=== PATIENT | female | born 1935 | race Caucasian/White ===

== ENCOUNTER 2021-02-17 22:48 | Emergency (ER) | payer MEDICARE, OTHER ==
[~2021-02-17] VITALS: Ht 144.8 cm; Wt 36.3 kg
[2021-02-18] MEDS ORDERED: ULTRAM 50MG50 MG PO (00:51)
[2021-02-18] MEDS ORDERED: ACETAMINOPHEN 325 MG TAB ONE (01:07)
== END 2021-02-18 01:47 | disposition home or self-care (01) ==
LOC: ER 22:54
DX: M54.6 Pain in thoracic spine (principal); M54.50 Low back pain, unspecified; W01.0XXA Fall on same level from slipping, tripping and stumbling without subsequent striking against object, initial encounter; Y93.01 Activity, walking, marching and hiking; Y92.89 Other specified places as the place of occurrence of the external cause
CPT/HCPCS: 71046; 72070; 72100; 99284

== ENCOUNTER 2021-03-30 19:55 | Emergency (ER) | payer MEDICARE ==
[~2021-03-30] VITALS: Ht 144.8 cm; Wt 36.3 kg
[~2021-03-30 19:55] MED LIST: ULTRAM 50MG50 MG PO
[2021-03-30] MEDS ORDERED: ACETAMINOPHEN 325 MG TAB ONE (20:22)
== END 2021-03-30 23:08 | disposition home or self-care (01) ==
LOC: ER 19:59
DX: S50.02XA Contusion of left elbow, initial encounter (principal); S30.0XXA Contusion of lower back and pelvis, initial encounter; W18.39XA Other fall on same level, initial encounter; Y93.01 Activity, walking, marching and hiking; Y92.090 Kitchen in other non-institutional residence as the place of occurrence of the external cause; I10 Essential (primary) hypertension
CPT/HCPCS: 70450; 72125; 72192; 99283

== ENCOUNTER 2021-04-12 21:42 | Emergency (ER) | payer MEDICARE ==
[~2021-04-12] VITALS: Ht 144.8 cm; Wt 36.3 kg
[2021-04-12 22:08] LABS: BASOPHILS % 0.5 % (0.0-1.0); EOSINOPHILS # (AUTO) 0.1 (0.0-0.4); EOSINOPHILS % 0.9 % (0.0-6.0); HEMATOCRIT 34.3 % (34.2-44.1); LYMPHOCYTES # (AUTO) 1.1 (1.0-3.2); LYMPHOCYTES % 14.3 % (18.0-39.1); MEAN CORPUSCULAR HEMOGLOBIN 30.4 pg (28-32); MEAN CORPUSCULAR HGB CONC 32.1 g/dL (31-35); MEAN CORPUSCULAR VOLUME 94.8 fL (81-99); MONOCYTES # (AUTO) 0.8 (0.2-0.8); MONOCYTES % 9.5 % (4.4-11.3); NEUTROPHILS # (AUTO) 5.9 (2.1-6.9); NEUTROPHILS % 74.3 % (38.7-80.0); PLATELET COUNT 288 x10e3/uL (140-360); RED BLOOD COUNT 3.62 x10e6/uL (3.6-5.1); RED CELL DISTRIBUTION WIDTH 14.7 % (11.7-14.4)
[2021-04-12 22:26] LABS: ALBUMIN 3.2 g/dL (3.5-5.0); ALBUMIN/GLOBULIN RATIO 0.9 (0.8-2.0); ANION GAP 16.8 mmol/L (8-16); CALCIUM 9.1 mg/dL (8.4-10.2); CREATININE, SERUM 1.12 mg/dL (0.57-1.11); POTASSIUM 3.8 mmol/L (3.5-5.1)
[2021-04-12 22:32] LABS: CREATINE KINASE MB 4.5 ng/mL (0-5.0)
[2021-04-12] MEDS ORDERED: ACETAMINOPHEN 325 MG TAB PO STA (23:25)
[2021-04-13] MEDS ORDERED: AZITHROMYCIN250 MG PO (00:49)
[2021-04-13] MEDS ORDERED: VENTOLIN HFA18 GM INH (00:49)
[2021-04-13] MEDS ORDERED: ULTRAM 50MG50 MG PO (00:51)
== END 2021-04-13 01:20 | disposition home or self-care (01) ==
LOC: ER 21:46
DX: S00.83XA Contusion of other part of head, initial encounter (principal); S22.040D Wedge compression fracture of fourth thoracic vertebra, subsequent encounter for fracture with routine healing; M25.522 Pain in left elbow; R91.8 Other nonspecific abnormal finding of lung field; S22.43XA Multiple fractures of ribs, bilateral, initial encounter for closed fracture; I10 Essential (primary) hypertension; J90 Pleural effusion, not elsewhere classified; W18.30XA Fall on same level, unspecified, initial encounter
CPT/HCPCS: 36415; 70450; 71045; 72128; 72131; 72192; 80053; 82550; 82553; 84484; 85025; 93005; 99284

== ENCOUNTER 2021-05-21 02:31 | Inpatient (IN) | payer MEDICARE, OTHER ==
[2021-05-21] VITALS (8 sets, daily range): BP systolic 111–163; BP diastolic 59–109
[~2021-05-21] VITALS: Ht 144.8 cm; Wt 36.3 kg
[~2021-05-21 02:31] MED LIST changes: +AZITHROMYCIN250 MG PO; +VENTOLIN HFA18 GM INH
[2021-05-21 02:53] LABS: BASOPHILS % 0.3 % (0.0-1.0); EOSINOPHILS # (AUTO) 0.1 (0.0-0.4); EOSINOPHILS % 0.4 % (0.0-6.0); HEMATOCRIT 37.9 % (34.2-44.1); HEMOGLOBIN 12.4 g/dL (12.0-16.0); LYMPHOCYTES # (AUTO) 1.8 (1.0-3.2); LYMPHOCYTES % 14.5 % (18.0-39.1); MEAN CORPUSCULAR HEMOGLOBIN 30.6 pg (28-32); MEAN CORPUSCULAR HGB CONC 32.7 g/dL (31-35); MEAN CORPUSCULAR VOLUME 93.6 fL (81-99); MONOCYTES # (AUTO) 1.3 (0.2-0.8); MONOCYTES % 10.1 % (4.4-11.3); NEUTROPHILS # (AUTO) 9.4 (2.1-6.9); NEUTROPHILS % 74.1 % (38.7-80.0); PLATELET COUNT 256 x10e3/uL (140-360); RED BLOOD COUNT 4.05 x10e6/uL (3.6-5.1); RED CELL DISTRIBUTION WIDTH 16.7 % (11.7-14.4)
[2021-05-21 03:09] LABS: ALBUMIN/GLOBULIN RATIO 0.8 (0.8-2.0); ANION GAP 15.7 mmol/L (8-16); CALCIUM 9.6 mg/dL (8.4-10.2); CREATININE, SERUM 1.45 mg/dL (0.57-1.11); POTASSIUM 3.7 mmol/L (3.5-5.1)
[2021-05-21] MEDS ORDERED: DIATRIZOATE MEGL/DIATRIZOA SOD 30 ML BTL PO ONE (03:14)
[2021-05-21 03:17] LABS: CLARITY,URINE CLEAR (CLEAR); COLOR,URINE YELLOW (YELLOW); KETONES,URINE TRACE (NEGATIVE); LEUKOCYTE ESTERASE ,URINE TRACE (NEGATIVE); NITRITE,URINE NEGATIVE (NEGATIVE); URINE UROBILINOGEN 0.2 mg/dL (0.2 - 1)
[2021-05-21 03:18] LABS: PROTEIN,URINE DIPSTICK 1+ (NEGATIVE)
[2021-05-21 03:19] LABS: BACTERIA,URINE FEW /HPF; EPITHELIAL CELLS,URINE RARE /LPF; RBC,URINE 0-5 /HPF (0-5)
[2021-05-21 04:43] LABS: INR 0.95; PROTHROMBIN TIME 13.6 seconds (11.9-14.5)
[2021-05-21 04:44] LABS: PARTIAL THROMBOPLASTIN TIME 37.1 seconds (23.8-35.5)
[2021-05-21] MEDS: SODIUM CHLORIDE 0.9% 1000ML 1,000 ML IV SCH ×3 (05:07→20:56)
[2021-05-21] MEDS ORDERED: MELOXICAM7.5 MG PO (07:00)
[2021-05-21] MEDS ORDERED: CRESTOR10 MG PO (07:33)
[2021-05-21] MEDS ORDERED: DOXYCYCLINE HY100 MG PO (07:34)
[2021-05-21] MEDS ORDERED: COLACE100 MG PO (07:36)
[2021-05-21] MEDS ORDERED: TYLENOL325 MG PO (07:36)
[2021-05-21] MEDS ORDERED: SYNTHROID50 MCG PO (07:36)
[2021-05-21] MEDS ORDERED: HYDROCHLOROTHIA25 MG PO (07:36)
[2021-05-21] MEDS: Morphine 2mg Syringe 2 MG/ML SYR IV PRN ×4 (09:38→23:15)
[2021-05-21] MEDS: ONDANSETRON HCL INJ 2MG/ML 2ML 2 MG/ML VIAL IV PRN (09:38)
[2021-05-21] MEDS ORDERED: ACETAMINOPHEN 1000 MG/100 ML IV PRN (20:45)
[2021-05-21] MEDS: SIMVASTATIN 20 MG TAB PO SCH (20:57)
[2021-05-21] MEDS ORDERED: HYDRALAZINE HCL 20 MG/ML VIAL IV PRN (22:45)
[2021-05-22] VITALS (8 sets, daily range): BP systolic 89–126; BP diastolic 39–68
[2021-05-22] MEDS: SODIUM CHLORIDE 0.9% 1000ML 1,000 ML IV SCH ×3 (03:40→17:26)
[2021-05-22] MEDS: Morphine 2mg Syringe 2 MG/ML SYR IV PRN ×2 (03:40→22:02)
[2021-05-22] MEDS: ONDANSETRON HCL INJ 2MG/ML 2ML 2 MG/ML VIAL IV PRN ×2 (04:59→22:02)
[2021-05-22] MEDS: LEVOTHYROXINE SODIUM 50 MCG TAB PO SCH (05:06)
[2021-05-22 05:31] LABS: BASOPHILS % 0.1 % (0.0-1.0); HEMATOCRIT 36.3 % (34.2-44.1); HEMOGLOBIN 11.9 g/dL (12.0-16.0); LYMPHOCYTES % 7.5 % (18.0-39.1); MEAN CORPUSCULAR HEMOGLOBIN 30.5 pg (28-32); MEAN CORPUSCULAR HGB CONC 32.8 g/dL (31-35); MEAN CORPUSCULAR VOLUME 93.1 fL (81-99); MONOCYTES % 7.5 % (4.4-11.3); NEUTROPHILS # (AUTO) 10.7 (2.1-6.9); NEUTROPHILS % 84.3 % (38.7-80.0); PLATELET COUNT 276 x10e3/uL (140-360); RED CELL DISTRIBUTION WIDTH 17.2 % (11.7-14.4)
[2021-05-22 05:59] LABS: ALBUMIN 2.2 g/dL (3.5-5.0); ALBUMIN/GLOBULIN RATIO 0.7 (0.8-2.0); CREATININE, SERUM 1.15 mg/dL (0.57-1.11)
[2021-05-22 06:22] LABS: CHOL/HDL RATIO 1.6 (3.0-3.6)
[2021-05-22 06:39] LABS: BILIRUBIN,DIRECT 0.4 mg/dL (0.0-0.5)
[2021-05-22 06:45] LABS: THYROID STIMULATING HORMONE 2.76 uIU/mL (0.350-4.940)
[2021-05-22] MEDS: HYDROCHLOROTHIAZIDE 25 MG TAB PO SCH (09:07)
[2021-05-22] MEDS: DOCUSATE SODIUM 100 MG CAP PO SCH (09:07)
[2021-05-22] MEDS ORDERED: POTASSIUM CHLORIDE 20 MEQ TAB CR PO ONE (10:30)
[2021-05-22] MEDS: TRAMADOL HCL 50 MG TAB PO PRN (14:25)
[2021-05-22] MEDS: FAMOTIDINE 20 MG TAB PO SCH (17:26)
[2021-05-22] MEDS: SIMVASTATIN 20 MG TAB PO SCH (21:38)
[2021-05-23] VITALS (8 sets, daily range): BP systolic 118–142; BP diastolic 53–69
[2021-05-23] MEDS: SODIUM CHLORIDE 0.9% 1000ML 1,000 ML IV SCH ×3 (01:26→19:50)
[2021-05-23] MEDS: TRAMADOL HCL 50 MG TAB PO PRN ×3 (04:47→22:02)
[2021-05-23] MEDS: ONDANSETRON HCL INJ 2MG/ML 2ML 2 MG/ML VIAL IV PRN ×4 (04:48→22:01)
[2021-05-23] MEDS: LEVOTHYROXINE SODIUM 50 MCG TAB PO SCH (05:02)
[2021-05-23 05:39] LABS: BASOPHILS % 0.2 % (0.0-1.0); HEMATOCRIT 37.9 % (34.2-44.1); HEMOGLOBIN 11.9 g/dL (12.0-16.0); LYMPHOCYTES # (AUTO) 0.8 (1.0-3.2); LYMPHOCYTES % 7.6 % (18.0-39.1); MEAN CORPUSCULAR HEMOGLOBIN 30.7 pg (28-32); MEAN CORPUSCULAR HGB CONC 31.4 g/dL (31-35); MEAN CORPUSCULAR VOLUME 97.7 fL (81-99); MONOCYTES # (AUTO) 0.8 (0.2-0.8); MONOCYTES % 7.7 % (4.4-11.3); NEUTROPHILS # (AUTO) 8.5 (2.1-6.9); NEUTROPHILS % 83.6 % (38.7-80.0); PLATELET COUNT 309 x10e3/uL (140-360); RED BLOOD COUNT 3.88 x10e6/uL (3.6-5.1); RED CELL DISTRIBUTION WIDTH 18.2 % (11.7-14.4)
[2021-05-23 06:00] LABS: ALBUMIN/GLOBULIN RATIO 0.6 (0.8-2.0); ANION GAP 17.6 mmol/L (8-16); CALCIUM 7.8 mg/dL (8.4-10.2); CREATININE, SERUM 1.46 mg/dL (0.57-1.11); POTASSIUM 3.6 mmol/L (3.5-5.1)
[2021-05-23] MEDS ORDERED: DIGOXIN INJ 0.25 MG/ML 2 ML AMP IV STA (09:34)
[2021-05-23] MEDS: DIGOXIN INJ 0.25 MG/ML 2 ML AMP IV ONE ×2 (09:50→10:00)
[2021-05-23] MEDS: FAMOTIDINE 20 MG TAB PO SCH ×2 (11:45→16:35)
[2021-05-23] MEDS: HYDROCHLOROTHIAZIDE 25 MG TAB PO SCH (16:35)
[2021-05-23] MEDS: DOCUSATE SODIUM 100 MG CAP PO SCH (16:47)
[2021-05-23] MEDS ORDERED: METOPROLOL TARTRATE INJ 1 MG/ML VIAL IV ONE (17:00)
[2021-05-23] MEDS: SIMVASTATIN 20 MG TAB PO SCH (21:41)
[2021-05-24] VITALS (19 sets, daily range): BP systolic 95–115; BP diastolic 30–71
[2021-05-24] MEDS: ONDANSETRON HCL INJ 2MG/ML 2ML 2 MG/ML VIAL IV PRN (01:56)
[2021-05-24] MEDS: Morphine 2mg Syringe 2 MG/ML SYR IV PRN (01:56)
[2021-05-24] MEDS ORDERED: LORAZEPAM 1 MG TAB PO PRN (03:30)
[2021-05-24] MEDS ORDERED: LACTULOSE SYRUP 20 GM/30 ML UDC PO PRN (03:30)
[2021-05-24] MEDS ORDERED: BISACODYL 5 MG TAB EC PO SCH (05:00)
[2021-05-24 05:30] LABS: BASOPHILS % 0.3 % (0.0-1.0); LYMPHOCYTES # (AUTO) 0.3 (1.0-3.2); LYMPHOCYTES % 2.6 % (18.0-39.1); MEAN CORPUSCULAR HEMOGLOBIN 30.7 pg (28-32); MEAN CORPUSCULAR HGB CONC 32.5 g/dL (31-35); MEAN CORPUSCULAR VOLUME 94.6 fL (81-99); MONOCYTES # (AUTO) 0.8 (0.2-0.8); MONOCYTES % 8.5 % (4.4-11.3); NEUTROPHILS # (AUTO) 8.4 (2.1-6.9); NEUTROPHILS % 88.3 % (38.7-80.0); PLATELET COUNT 393 x10e3/uL (140-360); RED BLOOD COUNT 4.23 x10e6/uL (3.6-5.1)
[2021-05-24 05:50] LABS: ALBUMIN 1.9 g/dL (3.5-5.0); ALBUMIN/GLOBULIN RATIO 0.5 (0.8-2.0); CALCIUM 7.6 mg/dL (8.4-10.2); CREATININE, SERUM 2.31 mg/dL (0.57-1.11)
[2021-05-24] MEDS: LEVOTHYROXINE SODIUM 50 MCG TAB PO SCH (06:30)
[2021-05-24] MEDS: FAMOTIDINE 20 MG TAB PO SCH ×2 (07:30→16:30)
[2021-05-24 07:59] LABS: BAND NEUTROPHILS % (MANUAL) 8 %; LYMPHOCYTES % (MANUAL) 4 % (19-48); METAMYELOCYTES % (MANUAL) 1 % (0-0); MONOCYTES % (MANUAL) 9 % (3.4-9.0); NEUTROPHILS % (MANUAL) 78 % (40-74)
[2021-05-24 08:00] LABS: PLATELET ESTIMATE ADEQUATE; PLATELET MORPHOLOGY COMMENT FEW GIANT; RBC MORPHOLOGY COMMENT NORMAL
[2021-05-24] MEDS: HYDROCHLOROTHIAZIDE 25 MG TAB PO SCH (09:00)
[2021-05-24] MEDS: DOCUSATE SODIUM 100 MG CAP PO SCH (09:00)
[2021-05-24] MEDS ORDERED: METOPROLOL TARTRATE INJ 1 MG/ML VIAL IV PRN ×3 (09:15→16:00)
[2021-05-24] MEDS ORDERED: Morphine 2mg Syringe 2 MG/ML SYR IV PRN (10:15)
[2021-05-24] MEDS ORDERED: HYDROCODONE/APAP 10MG-325MG TAB PO PRN (10:15)
[2021-05-24] MEDS ORDERED: SODIUM CHLORIDE 0.9% 250ML 250 ML IV ONE (13:30)
[2021-05-24] MEDS ORDERED: SODIUM CHLORIDE 0.9% 1000ML 1,000 ML IV SCH (16:00)
[2021-05-24] MEDS ORDERED: LACTATED RINGER'S 500 ML INJ ONE (18:15)
[2021-05-24] MEDS: SODIUM BICARBONATE 8.4% 100 ML in SODIUM CHLORIDE 0.45% 1,000 ML IV SCH (18:17)
[2021-05-24] MEDS: METOPROLOL TARTRATE 25 MG TAB PO SCH (19:15)
[2021-05-24] MEDS: SIMVASTATIN 20 MG TAB PO SCH (20:49)
[2021-05-25] VITALS (34 sets, daily range): BP systolic 84–113; BP diastolic 28–66
[2021-05-25] MEDS ORDERED: LEVOTHYROXINE SODIUM 50 MCG TAB PO SCH (05:00)
[2021-05-25] MEDS ORDERED: LEVOTHYROXINE SODIUM 100 MCG/VIAL IV SCH (06:00)
[2021-05-25 06:25] LABS: BASOPHILS # (AUTO) 0.1 (0.0-0.1); BASOPHILS % 0.8 % (0.0-1.0); HEMATOCRIT 36.2 % (34.2-44.1); HEMOGLOBIN 11.5 g/dL (12.0-16.0); LYMPHOCYTES # (AUTO) 0.3 (1.0-3.2); LYMPHOCYTES % 1.7 % (18.0-39.1); MEAN CORPUSCULAR HEMOGLOBIN 30.8 pg (28-32); MEAN CORPUSCULAR HGB CONC 31.8 g/dL (31-35); MEAN CORPUSCULAR VOLUME 97.1 fL (81-99); MONOCYTES # (AUTO) 1.1 (0.2-0.8); NEUTROPHILS # (AUTO) 13.5 (2.1-6.9); NEUTROPHILS % 85.9 % (38.7-80.0); PLATELET COUNT 324 x10e3/uL (140-360); RED BLOOD COUNT 3.73 x10e6/uL (3.6-5.1); RED CELL DISTRIBUTION WIDTH 18.5 % (11.7-14.4)
[2021-05-25 06:47] LABS: ALBUMIN 1.4 g/dL (3.5-5.0); ALBUMIN/GLOBULIN RATIO 0.4 (0.8-2.0); ANION GAP 17.6 mmol/L (8-16); CREATININE, SERUM 2.85 mg/dL (0.57-1.11); POTASSIUM 4.6 mmol/L (3.5-5.1)
[2021-05-25 06:49] LABS: CALCIUM 6.8 mg/dL (8.4-10.2)
[2021-05-25] MEDS: FAMOTIDINE 20 MG TAB PO SCH (07:30)
[2021-05-25] MEDS ORDERED: DEXTROSE 5%/0.9% SOD CHL 1,000 ML IV SCH (07:45)
[2021-05-25] MEDS ORDERED: DEXTROSE 5%/0.9% SOD CHL 1,000 ML IV ONE (07:51)
[2021-05-25] MEDS: SODIUM BICARBONATE 8.4% 100 ML in SODIUM CHLORIDE 0.45% 1,000 ML IV SCH (08:10)
[2021-05-25] MEDS: DOCUSATE SODIUM 100 MG CAP PO SCH (08:32)
[2021-05-25] MEDS: METOPROLOL TARTRATE 25 MG TAB PO SCH (08:33)
[2021-05-25] MEDS ORDERED: BISACODYL 5 MG TAB EC PO SCH (09:00)
[2021-05-25] MEDS ORDERED: AMIODARONE HCL 200 MG TAB PO SCH (09:00)
[2021-05-25] MEDS ORDERED: CALCIUM GLUC 1 G/50 ML NACL 50 ML IV ONE (09:15)
[2021-05-25] MEDS ORDERED: SODIUM BICARBONATE 8.4% SYRING 150 ML in DEXTROSE 5% 1,000 ML IV SCH (11:00)
[2021-05-25 11:58] LABS: BAND NEUTROPHILS % (MANUAL) 10 %; MONOCYTES % (MANUAL) 6 % (3.4-9.0); MYELOCYTES % (MANUAL) 1 % (0-0); NEUTROPHILS % (MANUAL) 83 % (40-74); PLATELET ESTIMATE ADEQUATE; RBC MORPHOLOGY COMMENT NORMAL
[2021-05-25 11:59] LABS: PLATELET MORPHOLOGY COMMENT FEW GIANT
[2021-05-25] MEDS ORDERED: LACTATED RINGER'S 1,000 ML INJ SCH (15:45)
== END 2021-05-25 20:56 | disposition expired | DRG 871 ==
LOC: ER 02:46 → ERHOLD 04:32 → MED/SURG2 05:40 → ICU 05-24 17:10
PROVIDERS: ADMIT Internal Medicine; ATTEND Internal Medicine
PROC: 3E03329 Introduction of Other Anti-infective into Peripheral Vein, Percutaneous Approach (ICD-10-PCS; 2021-05-21)
PROC: 02HV33Z Insertion of Infusion Device into Superior Vena Cava, Percutaneous Approach (ICD-10-PCS; principal; 2021-05-24)
DX: A41.59 Other Gram-negative sepsis (principal); N17.0 Acute kidney failure with tubular necrosis; G92.8 Other toxic encephalopathy; G93.41 Metabolic encephalopathy; K57.20 Diverticulitis of large intestine with perforation and abscess without bleeding; N39.0 Urinary tract infection, site not specified; E87.2 Acidosis; J90 Pleural effusion, not elsewhere classified; K66.8 Other specified disorders of peritoneum; R65.20 Severe sepsis without septic shock; E83.51 Hypocalcemia; E78.5 Hyperlipidemia, unspecified; E03.9 Hypothyroidism, unspecified; E87.6 Hypokalemia; K59.09 Other constipation; I48.0 Paroxysmal atrial fibrillation; B96.4 Proteus (mirabilis) (morganii) as the cause of diseases classified elsewhere; G89.29 Other chronic pain; Z66 Do not resuscitate; T40.2X5A Adverse effect of other opioids, initial encounter; Z88.1 Allergy status to other antibiotic agents; Z88.2 Allergy status to sulfonamides; Z88.8 Allergy status to other drugs, medicaments and biological substances; Z91.81 History of falling; Y92.230 Patient room in hospital as the place of occurrence of the external cause; N18.9 Chronic kidney disease, unspecified; M85.88 Other specified disorders of bone density and structure, other site; I35.2 Nonrheumatic aortic (valve) stenosis with insufficiency; E16.2 Hypoglycemia, unspecified; Z20.822 Contact with and (suspected) exposure to COVID-19; I12.9 Hypertensive chronic kidney disease with stage 1 through stage 4 chronic kidney disease, or unspecified chronic kidney disease
CPT/HCPCS: 36415; 71045; 74022; 74176; 76770; 80053; 80061; 81001; 82150; 82248; 82948; 83036; 83605; 83690; 83735; 83880; 84443; 85025; 85610; 85730; 87040; 87086; 87186; 93005; 93306; 94799; 96361; 97139; 99251; 99284; J1160; J2185; J2270; J2405; J2543; J7030; J7042; J7050; J7070; J7121; U0002